=== PATIENT | female | born 1985 | race Caucasian/White ===

== ENCOUNTER 2018-03-10 16:56 | Emergency (ER) | payer OTHER, SELFPAY ==
[~2018-03-10] VITALS: Ht 157.5 cm; Wt 72.1 kg
[~2018-03-10 16:56] MED LIST: ALBU90OI6; AZO BLADDER CO300 MG PO; CEFP200 PO; Daily Multiple1 EACH; ESCI10; FISH1000; IBUP800 PO; Kristalose20 GM PO; LO LOESTRIN FE1 EACH PO; LORA10; ONDA4ODT MM; Percocet 5-3251 EACH PO; Percocet 7.5-31 EACH PO; SPIR50 PO; TURMERIC500 MG; VIIBRYD40 MG PO; ZOLP10
[2018-03-10] MEDS ORDERED: Percocet 10-321 EACH PO (21:14)
== END 2018-03-10 21:38 | disposition home or self-care (01) ==
LOC: ER 16:56
DX: S52.501A Unspecified fracture of the lower end of right radius, initial encounter for closed fracture (principal); X58.XXXA Exposure to other specified factors, initial encounter; Z91.048 Other nonmedicinal substance allergy status; Z79.899 Other long term (current) drug therapy; Z79.891 Long term (current) use of opiate analgesic
CPT/HCPCS: 29105; 29705; 73110; 99283-25

== ENCOUNTER → 2025-06-22 | Outpatient (CLI) | payer OTHER ==
[~2025-06-22] MED LIST changes: +Adipex-P37.5 M1 PO; +Cyclobenzaprine5 MG; +Lamictal150 MG PO; +MELO7.5 PO; +NAPROXEN500 MG PO; +OMEP20ER PO; +Percocet 10-321 EACH PO; +Prozac20 MG PO; +TRAM50 PO
[2025-06-25 15:23] LABS: APTIMA MEDIA TYPE Urine; C. TRACHOMATIS BY TMA Negative (Negative); N. GONORRHOEAE BY TMA Negative (Negative)
== END | disposition home or self-care (01) ==
LOC: LAB SHORT 14:30 → LAB 14:30
PROVIDERS: Nurse Practitioner Family
DX: Z11.3 Encounter for screening for infections with a predominantly sexual mode of transmission (principal); N39.0 Urinary tract infection, site not specified
CPT/HCPCS: 87086; 87491; 87591